=== PATIENT | female | born 1975 | race Caucasian/White ===

== ENCOUNTER 2017-03-10 09:13 | Outpatient (CLI) | payer OTHER | END 2017-03-10 09:14 | disposition home or self-care (01) | LOC: DI.S 09:13 | DX: Z53.9 Procedure and treatment not carried out, unspecified reason (principal) ==

== ENCOUNTER 2017-04-01 10:50 | Outpatient (CLI) | payer OTHER ==
--- NOTE | 2017-04-01 12:48 | Ultrasound Report ---
LEFT BREAST ULTRASOUND: 04/01/2017 CLINICAL INDICATION: Palpable abnormality left upper outer quadrant. TECHNIQUE: Real-time scanning was performed with entry level account representative static images obtained. FINDINGS: Ultrasound of the palpable region identified by the patient was performed. Unremarkable parenchymal lobules are present. No discrete solid or cystic mass is identified. No sonographically suspicious findings are seen. IMPRESSION: NEGATIVE EXAMINATION. RECOMMENDATION: Routine annual screening unless otherwise clinically indicated. BIRADS CATEGORY 1 - NEGATIVE. MTDD
--- NOTE | 2017-04-01 15:06 | Mammography Report ---
DIGITAL DIAGNOSTIC BILATERAL MAMMOGRAM: 04/01/2017 CLINICAL INDICATION: Palpable abnormality left breast. COMPARISON: 07/17/2008 TECHNIQUE: Bilateral CC and MLO views, left true lateral view. A marker was placed at the site of p alpable abnormality in the left upper outer central breast. FINDINGS: The breasts demonstrate scattered fibroglandular densities bilaterally. No suspicious mas s, clustered microcalcifications, or regions of architectural distortion are identified. There has b een no significant interval change. Specifically, no mammographic abnormality is appreciated in the left upper outer quadrant at the site of palpable abnormality indicated by the marker. Please also refer to left breast ultrasound of the same day. IMPRESSION: NEGATIVE EXAMINATION. RECOMMENDATION: Routine annual screening unless otherwise clinically indicated. BI-RADS category 1, negative. STANDARD QUALIFYING STATEMENTS 1. This examination was reviewed with the aid of Computer-Aided Detection (CAD). 2. A negative or benign imaging report should not delay biopsy if clinically suspicious findings are present. Consider surgical consultation if warranted. More than 5% of cancers are not identified by i maging. 3. Dense breasts may obscure an underlying neoplasm. JOB #: [id number] EXT JOB #:[id number]
== END 2017-04-01 10:51 | disposition home or self-care (01) ==
LOC: DI 10:50
PROVIDERS: ATTEND Registered Nurse
DX: N63.20 Unspecified lump in the left breast, unspecified quadrant (principal)
CPT/HCPCS: 76642; 77066

== ENCOUNTER 2017-05-27 11:00 | Outpatient (CLI) | payer OTHER | END 2017-05-27 11:01 | disposition home or self-care (01) | LOC: LAB.R 11:00 | PROVIDERS: ATTEND Registered Nurse | DX: Z11.3 Encounter for screening for infections with a predominantly sexual mode of transmission (principal) | CPT/HCPCS: 87491; 87591 ==

== ENCOUNTER 2017-09-01 15:23 | Outpatient (CLI) | payer OTHER | END 2017-09-01 23:59 | disposition home or self-care (01) | LOC: LAB.R 15:23 | PROVIDERS: ATTEND Registered Nurse | DX: N76.0 Acute vaginitis (principal) | CPT/HCPCS: 87491; 87591 ==

== ENCOUNTER 2019-04-21 19:48 | Emergency (ER) | payer OTHER ==
--- NOTE | 2019-04-21 20:11 | ED Physician Documentation ---
PD HPI UPPER EXT INJURY - Stated complaint Stated Complaint: RT INDEX FINGER LAC - Chief complaint Chief Complaint: Laceration PD PAST MEDICAL HISTORY - Past Medical History Past Medical History: No - Allergies Allergies/Adverse Reactions: Allergies Allergy/AdvReac Type Severity Reaction Status Date / Time codeine Allergy Hives Verified 04/21/19 19:54 - Social History Does the pt smoke?: Yes Smoking Status: Former smoker Does the pt drink ETOH?: Yes Does the pt have substance abuse?: No - POLST Patient has POLST: No Results - Vitals Vitals: Vital Signs - 24 hr 04/21/19 19:54 Temperature 36.9 C Heart Rate 62 Respiratory 16 Rate Blood Pressure 147/98 H O2 Saturation 98 Oxygen O2 Source Room air
[2019-04-21] MEDS ORDERED: BUFFERED LIDOCAINE 10 ML SYRINGE ONE (20:14)
[2019-04-21] MEDS ORDERED: TETANUS/DIPHTHERIA/PERTUSSIS 0.5 ML SYRINGE IM ONE (21:18)
--- NOTE | 2019-04-21 21:19 | ED Physician Documentation ---
History of Present Illness - Stated complaint Stated Complaint: RT INDEX FINGER LAC - Chief complaint Chief Complaint: Laceration - History obtained from History obtained from: Patient - History of Present Illness Timing: Today Pain level max: 3 Pain level now: 3 - Additonal information Additional information: Laceration to the dorsum of the right second MCP. This is from a broken wine glass while at work tonight. Better with pressure, worse with movement. No numbness or tingling. Unknown last tetanus. Review of Systems : denies: Now EGA Neurologic: denies: Focal weakness, Numbness PD PAST MEDICAL HISTORY - Past Medical History Past Medical History: No - Allergies Allergies/Adverse Reactions: Allergies Allergy/AdvReac Type Severity Reaction Status Date / Time codeine Allergy Hives Verified 04/21/19 19:54 - Social History Does the pt smoke?: Yes Smoking Status: Former smoker Does the pt drink ETOH?: Yes Does the pt have substance abuse?: No - POLST Patient has POLST: No PD ED PE NORMAL - Vitals Vital signs reviewed: Yes - General General: Alert and oriented X 3, No acute distress - Derm Derm: Warm and dry - Extremities Extremities: Other (2 cm laceration to the dorsum of the right second MCP joint. Neurovascular intact. Joint is not involved. Tendons intact. Superficial.) - Neuro Neuro: Alert and oriented X 3 Results - Vitals Vitals: Vital Signs - 24 hr 04/21/19 19:54 Temperature 36.9 C Heart Rate 62 Respiratory 16 Rate Blood Pressure 147/98 H O2 Saturation 98 Oxygen O2 Source Room air Procedures - Laceration (location) Right index finger MCP joint. Wound type: Linear, Into subcut fat, Clean Neurovascular status: Sensory intact, Motor intact, Vascular intact Tendon involvement: Tendon intact Anesthesia: Lidocaine 1%, With bicarb Wound Preparation: Irrigated copiously NS, Wound explored, To the base. No: FB identified, FB removed Skin layer closure: Nylon, Interrupted, Size #-0 - enter number (4) Other: Patient tolerated well, No complications, Neurovascular intact, Dressing applied, Tetanus booster given Complexity: Simple PD MEDICAL DECISION MAKING - ED course Complexity details: considered differential, d/w patient ED course: Laceration repaired. Tolerated well. L&I paperwork filled out. Patient counseled regarding signs and symptoms for which I believe and urgent re- evaluation would be necessary. Patient with good understanding of and agreement to plan and is comfortable going home at this time This document was made in part using voice recognition software. While efforts are made to proofread this document, sound alike and grammatical errors may occur. Warnings of infection and instructions on wound care given at bedside. Also counseled on how to minimize scarring. Departure - Departure Disposition: 01 Home, Self Care Clinical Impression: Hand laceration Qualifiers: Encounter type: initial encounter Foreign body presence: unspecified Laterality: right Qualified Code(s): S61.411A - Laceration without foreign body of right hand, initial encounter Condition: Good Instructions: ED Laceration Hand Follow-Up: Your,doctor [Other] Comments: Follow-up with your doctor in 10 to 14 days for suture removal. Return if you notice redness, swelling or drainage from the wound. Keep the wound clean.
[2019-04-21] MEDS ORDERED: BACITRACIN ZINC OINT 14 GM TOP ONE (21:29)
[2019-04-21 21:32] VITALS: BP 140/99
== END 2019-04-21 21:38 | disposition home or self-care (01) ==
LOC: ED 19:48
DX: S61.210A Laceration without foreign body of right index finger without damage to nail, initial encounter (principal); W25.XXXA Contact with sharp glass, initial encounter; Y92.89 Other specified places as the place of occurrence of the external cause; Y99.0 Civilian activity done for income or pay; Z87.891 Personal history of nicotine dependence
CPT/HCPCS: 1040M; 12001; 90471; 90715; 99282; 99283; A9270

== ENCOUNTER 2020-01-12 12:36 | Outpatient (CLI) | payer OTHER | END 2020-01-12 12:37 | disposition home or self-care (01) | LOC: LAB 12:36 | PROVIDERS: ATTEND Emergency Medicine | DX: Z20.828 Contact with and (suspected) exposure to other viral communicable diseases (principal); B34.9 Viral infection, unspecified ==

== ENCOUNTER 2020-03-12 13:53 | Outpatient (CLI) | payer OTHER ==
[2020-03-13 12:03] LABS: HEPATITIS C ANTIBODY NON-REACTIVE (NON-REACTIVE)
[2020-03-13 13:02] LABS: HIV AG/AB 4TH GEN NON-REACTIVE (NON-REACTIVE)
[2020-03-14 14:46] LABS: HSV 1 IGG TYPE SPECIFIC AB 9.48 index; HSV 2 IGG TYPE SPECIFIC AB <0.90 index
== END 2020-03-12 13:54 | disposition home or self-care (01) ==
LOC: LAB 13:53
PROVIDERS: ATTEND Nurse Practitioner Obstetrics & Gynecology
DX: Z11.3 Encounter for screening for infections with a predominantly sexual mode of transmission (principal)
CPT/HCPCS: 36415; 81599; 86592; 86695; 86696; 86803; 87389

== ENCOUNTER 2022-04-08 08:51 | Outpatient (CLI) | payer MEDICAID ==
--- NOTE | 2022-04-09 09:49 | Mammography Report ---
BILATERAL DIGITAL SCREENING MAMMOGRAM 3D/2D: 04/08/2022 CLINICAL: Routine screening. Comparison is made to exams dated: 04/01/2017 mammogram and 07/17/2008 mammogram - [facility]. Both breasts are almost entirely fatty (category a/<25% glandular tissue). No significant masses, calcifications, or other findings are seen in either breast. There has been no significant interval change. IMPRESSION: NEGATIVE There is no mammographic evidence of malignancy. A 1 year screening mammogram is recommended. Based on the Tyrer Cuzick model (a risk assessment model) the patients lifetime risk is 6.3% and her 10 year risk is 1.3%. According to the ACR, ACS, and NCCN guidelines, an annual breast MRI exam marisela g with mammogram is recommended if the patients lifetime risk is 20% or greater. This exam was interpreted at Station ID: [id number]. NOTE: For mammograms, a report in lay terms will be sent to the patient. Approximately 15% of breast malignancies will not be visualized mammographically. In the management of a palpable breast mass, a negative mammogram must not discourage biopsy of a clinically suspicious lesion. Electronically Signed By: Kunal Cordero M.D. aty/penrad:04/08/2022 10:42:10 ACR BI-RADS Category 1: Negative 3341F PARENCHYMAL PATTERN: (F) - The breast(s) demonstrate(s) diffuse fatty replacement. BI-RADS CATEGORY: (1) - 1 RECOMMENDATION: (ANNUAL) - Recommend routine annual screening mammography. [id number] 1 year screening LATERALITY: (B)
== END 2022-04-08 08:52 | disposition home or self-care (01) ==
LOC: DI.S 08:51
PROVIDERS: ATTEND Nurse Practitioner
DX: Z12.31 Encounter for screening mammogram for malignant neoplasm of breast (principal)